=== PATIENT | male | born 1960 | race Caucasian/White ===

== ENCOUNTER 2023-08-20 20:13 | Outpatient (CLI) | payer MEDICAID, SELFPAY ==
--- NOTE | 2023-08-30 13:03 | W.PM.SLEEP ---
Sleep Study Details Details Interpreting Provider: Nithin Date of Sleep Study: 08/20/23 Sleep Study Details: STUDY TYPE: Hospital-based attended ? BMI:? 28.9 ORDERING PROVIDER:Katarina Milner INDICATION:? Concerned about sleep apnea ? SLEEP SUMMARY:? 425 minutes total sleep time RESPIRATORY SUMMARY:? Mean oxygen awake 93 asleep 92, minimum 84 1 minute oxygen between 80 and 88% AHI 8.8, supine REM AHI 0. Minimal variation between supine and nonsupine positions PERIODIC LIMB MOVEMENTS OF SLEEP:? Index 10.3, index with arousal 0 CARDIAC:? Awake 85 asleep 82 occasional PVCs were noted IMPRESSION:? Mild obstructive sleep apnea RECOMMENDATION: If patient is symptomatic, treatment options would include CPAP dental appliance and/or airway expansion surgery.
== END 2023-08-20 20:14 | disposition home or self-care (01) ==
LOC: SLEEP 20:16
PROVIDERS: PCP Family Medicine; Visit Provider Family Medicine
DX: G47.33 Obstructive sleep apnea (adult) (pediatric) (principal)
CPT/HCPCS: 95810

== ENCOUNTER 2024-01-18 09:10 | Outpatient (CLI) | payer MEDICAID, SELFPAY | END 2024-01-18 09:11 | disposition home or self-care (01) | LOC: NFLDREF 01-21 17:04 | PROVIDERS: PCP Family Medicine; Referring Provider Family Medicine; Visit Provider Family Medicine | DX: R79.89 Other specified abnormal findings of blood chemistry (principal) | CPT/HCPCS: 84270; 84402; 84403 ==